=== PATIENT | female | born 1975 | race Caucasian/White ===

== ENCOUNTER 2017-10-12 09:44 | Day surgery (SDC) | payer BC ==
[~2017-10-12 09:44] MED LIST: RINGER'S SOLUTION,LACTATED 1,000 ML IV PRN
[2017-10-12] MEDS: RINGER'S SOLUTION,LACTATED 1,000 ML IV ONE ×2 (10:42→12:35)
[2017-10-12] MEDS ORDERED: RINGER'S SOLUTION,LACTATED 1,000 ML IV PRN (12:43)
[2017-10-12] MEDS: PANTOPRAZOLE SODIUM 40 MG in NORMAL SALINE 100 ML IV ONE (13:00)
[2017-10-12 13:19] VITALS: BP 112/76
--- NOTE | 2017-10-12 19:03 | OR ---
Operative Report - Dictated Report Narrative: Operative Report Date of operation: 10/12/2017 Preoperative diagnosis: Dysphagia. Hiatal hernia with esophageal ring on esophagram Postoperative diagnosis: Hiatal hernia with esophageal ring. Grossly normal stomach and duodenum (CLOtest pending) Operation: EGD with gastric biopsy and balloon dilation of the GE junction to 20 mm Surgeon: Dr Edwards Anesthesia: LUNA LAST CRNA Indications for procedure: The patient is a 42-year-old female referred by Dr. Kendall. She has a 3 or 4 year history of dysphagia. Esophagram demonstrates a small hiatal hernia and esophageal ring Findings: Distal esophageal ring above a hiatal hernia. Normal stomach and duodenum. The ring easily admitted an 18 mm balloon and was dilated to 20 mm Narrative of procedure: The patient was identified preoperatively, and prior to the administration of anesthetic a multidisciplinary timeout was observed With the patient in the recumbent position, a bite-block was placed, intravenous sedation administered, and the patient's eyes covered with a towel. The flexible fiberoptic gastroscope was advanced into the posterior pharynx which appeared normal. The patient had a very reactive airway with cough, however the supraglottic larynx appeared normal. The cords appeared normal, moved well, and opposed in the midline. The scope was advanced under direct vision into the proximal esophagus which appeared normal. The esophagus appeared freely distensible with normal mucosa. The esophageal mucosa appeared normal down to the gastroesophageal junction where there was a ring however the mucosal transition was sharp and only minimally inflamed. The GE junction appeared normally distensible. There was a small sliding hiatal hernia. The scope was advanced into the stomach proper which was insufflated with air. The gastric mucosa appeared grossly normal including a retroflex view of the gastric fundus which demonstrated the hiatal hernia. The pylorus appeared patent. The scope was advanced into the duodenal bulb which appeared normal. The scope was advanced further to the horizontal portion of the duodenum which appeared normal, specifically the villous architecture appeared well preserved and clear bile was present. The scope was slowly withdrawn through the duodenal bulb with confirmation that no active ulcer was present. The scope was withdrawn into the stomach and a manufacturers service representative biopsy of gastric mucosa obtained for CLOtest. The biopsy was seen to be hemostatic. The insufflated air was removed from the stomach and a balloon dilator deployed. This was withdrawn to lie across the GE junction. The balloon was inflated to 18 mm. The balloon easily passed through the GE junction. The balloon was then reinflated to 20 mm. The area appeared hemostatic. The stomach was again emptied of insufflated air, the scope withdrawn from the patient, and the procedure terminated. The patient tolerated the anesthetic and procedure well without complication and was transferred back to the ambulatory surgery area awake and in stable condition. The patient remained stable throughout a period of postoperative observation, was able to tolerate po intake, and was up without assistance. I shared the operative findings with her, and she was given copies of the photographs which appear in the medical record. She was given a single dose of Protonix 40 mg IV. She was discharged home with instructions not to engage in hazardous activity today, but may return to normal activity tomorrow and advance diet as tolerated. She is to continue medications as listed in the history and physical exam. I made arrangements to contact the patient with the biopsy reports and will make further recommendation based upon that result. Reviewed and electronically signed
== END 2017-10-12 09:45 | disposition home or self-care (01) ==
LOC: AMB 09:44
PROVIDERS: ATTEND Surgery
PROC: 0DB48ZZ Excision of Esophagogastric Junction, Via Natural or Artificial Opening Endoscopic (ICD-10-PCS; principal; 2017-10-12)
PROC: 0D738ZZ Dilation of Lower Esophagus, Via Natural or Artificial Opening Endoscopic (ICD-10-PCS; 2017-10-12)
DX: K44.9 Diaphragmatic hernia without obstruction or gangrene; K22.2 Esophageal obstruction